=== PATIENT | female | born 1955 | race Caucasian/White ===

== ENCOUNTER 2023-07-23 06:23 | Day surgery (SDC) | payer MEDICARE, SELFPAY ==
[2023-07-23] VITALS (7 sets, daily range): BP systolic 99–140; BP diastolic 70–80; PULSE 55–71; RESP 16; TEMP 36.1–36.6; O2SAT 96–99; BMI 27.7
[2023-07-23] MEDS: Lactated Ringers 1,000 ML 15 ML IV (06:50)
--- NOTE | 2023-07-23 07:48 | PCM.HP.STD ---
HPI - General General Date of Admission: 07/23/23 Date of Service: 07/23/23 Chief Complaint: Screening colonoscopy HPI Narrative SUSAN HYDE, is a 68 F who presents today for screening colonoscopy. She had a colonoscopy approximately 12 years ago. She is not have any abdominal pain. She not have any nausea, vomiting or diarrhea. She has past medical history of mild hypertension and hyperlipidemia. Overall she is in very good health. [facility] Medical History (Updated 07/17/23 @ 16:00 by Jonathan Bermudez) Arthritis Atopic eczema Cardiology follow-up encounter Depression Disorder of thyroid Heartburn History of echocardiogram History of fracture of orbit History of skin cancer HTN (hypertension) Hx of breast cancer Hx of colonic polyp MVP (mitral valve prolapse) Home Medications calcium carbonate (Calcium 600) 600 mg PO DAILY 06/10/23 [History Last Taken 07/22/23] coenzyme Q10 30 mg capsule (Co Q-10) 30 mg PO DAILY 06/10/23 [History Last Taken 07/22/23] desvenlafaxine succinate 50 mg tablet,extended release 24 hr (Pristiq) 50 mg PO DAILY 06/10/23 [History Last Taken 07/23/23] dupilumab 300 mg/2 mL subcutaneous pen injector (Dupixent) 300 mg subcut Q3W 06/10/23 [History Last Taken Unknown] hydrochlorothiazide 12.5 mg capsule 12.5 mg PO DAILY 06/10/23 [History Last Taken 07/22/23] levothyroxine 50 mcg capsule 50 mcg PO DAILY 06/10/23 [History Last Taken 07/22/23] lisinopril 40 mg tablet 40 mg PO DAILY 06/10/23 [History Last Taken 07/22/23] metoprolol succinate 50 mg tablet,extended release 24 hr 50 mg PO DAILY 06/10/23 [History Last Taken 07/22/23] multivitamin 1 tab PO DAILY 06/10/23 [History Last Taken 07/22/23] omega-3 fatty acids-fish oil 360 mg-1,200 mg capsule (Fish Oil) 1 cap PO DAILY 06/10/23 [History Last Taken Unknown] simvastatin 20 mg tablet 20 mg PO QPM 06/10/23 [History Last Taken 07/22/23] turmeric root extract 500 mg capsule 500 mg PO DAILY 06/10/23 [History Last Taken Unknown] zolpidem 5 mg tablet 5 mg PO QHS insomnia 06/10/23 [History Last Taken 07/22/23] zolpidem 6.25 mg tablet,extended release,multiphase 6.25 mg PO QHS 06/10/23 [History Last Taken 07/22/23] Allergy/AdvReac Type Severity Reaction Status Date / Time ceftriaxone Allergy Low blood Verified 07/23/23 06:46 pressure Family History (Updated 06/10/23 @ 11:13 by Aerli Mcdermott) Mother COPD (chronic obstructive pulmonary disease) Myocardial infarction Father ALS (amyotrophic lateral sclerosis) Brother Multiple myeloma Grandmother Pancreatic cancer Surgical History History of arthroscopy of both knees History of lumpectomy of right breast Hx of section Hx of cholecystectomy Hx of colonoscopy Hx of vaginal hysterectomy Hx of wisdom tooth extraction Social History (Updated 06/10/23 @ 11:14 by Areli Mcdermott) household members: none current occupational status: employed 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 Smoking Status: Never smoker details: 1 glass wine per week substance use type: does not use ROS Review of Systems ROS Unobtainable: other Constitutional Constitutional: Denies fatigue, fever(s), poor appetite, weight gain or weight loss ENT HEENT: Denies mouth lesions Cardiovascular Cardiovascular: Denies abdominal bloating, abdominal edema or abdominal pain Respiratory/Chest Respiratory/Chest: Denies change in mental status, change in phlegm color, chest congestion or chest tightness Gastrointestinal Gastrointestinal: Denies belching, bloating, change in bowel habits, change in stool character, chewing difficulty, coffee ground emesis, constipation, cramping, diarrhea, dyspepsia, dysphagia, early satiety, excessive flatus, fecal incontinence, heartburn, hematemesis, hematochezia, hemorrhoids, loose stools, melena, nausea, odynophagia, rectal bleeding, tenesmus, vomiting or weight changes Genitourinary Genitourinary: Denies abdominal discomfort, burning urination or itching Musculoskeletal Musculoskeletal: Reports as per HPI; Denies muscle weakness or myalgias Integumentary Integumentary: Denies jaundice Neurologic Neurologic: Denies lack of coordination or weakness Psychiatric Psychiatric: Denies confusion, depression, memory loss, mood swings, paranoia or suicidal ideation Endocrine Endocrinology: Denies systems reviewed and no addt'l complaints, except as documented Hematologic/Lymphatic Hematologic/Lymphatic: Denies anemia, easy bleeding, easy bruising or lymphadenopathy Allergic/Immunologic Allergic/Immunologic: Denies systems reviewed and no addt'l complaints, except as documented Vital Signs Vital Signs Vital Signs: 07/23/23 06:47 07/23/23 06:47 Temperature 98 F Temperature Source Temporal Pulse Rate 55 L Respiratory Rate 16 Respiratory Pattern Normal Blood Pressure 140/72 H Blood Pressure Mean 94 Blood Pressure Source Monitor Blood Pressure Position Semi-Fowlers Blood Pressure Location Right Arm Pulse Ox 99 Oxygen Delivery Method Room Air Weight Weight: 156 lb 8.451 oz Body Mass Index (BMI) 27.7 Physical Exam Const alert General Appearance: cooperative Orientation / Consciousness: oriented to person HEENT hearing grossly normal bilaterally Head and Scalp: normal to inspection Face and Sinus: face symmetric Nose: external nose normal Mouth: oral and palatal mucosa normal Eyes conjunctivae normal General Eye: normal appearance of both eyes Neck full ROM General: normal visual inspection Lymph Lymphatic: no lymphadenopathy noted Chest inspection of chest normal and palpation of chest normal Chest: symmetrical chest wall rise Resp normal respiratory effort Effort and Inspection: able to speak in complete sentences Cardio regular rate GI non-distended Percussion: normal to percussion Rectal Exam: deferred Neuro Speech: speech normal Gait (Neuro): normal gait Assessment & Plan Assessment/Plan (1) Encounter for screening for malignant neoplasm of colon: PLAN: She was explained alternatives, risk, benefits include not withstanding bleeding, infection, sepsis, perforation, need for emergent surgery and . She will have an ASA of 2.
--- NOTE | 2023-07-23 08:13 | OP.CCLET_ITS ---
07/23/2023 Chon Reyes Re : Colonoscopy procedure for Annalisa Smith Dear Eric This procedure was performed on Sunday, July 23, 2023. My impressions and recommendations are as follows: Impressions : - Diverticulosis in the recto-sigmoid colon, in the sigmoid colon and in the descending colon. - The examination was otherwise normal on direct and retroflexion views. - No specimens collected. Recommendations : - Discharge patient to home. - Resume previous diet. - Continue present medications. - Repeat colonoscopy in 10 years for screening purposes. My findings are described in the full procedure note, which is enclosed. If I can be of further assistance, please feel free to contact me at . Sincerely, Hayden De La Torre, 07/23/2023 8:13:24 AM This report has been signed electronically.
--- NOTE | 2023-07-23 08:13 | OP.COLON_ITS ---
Patient Name: Annalisa Smith Procedure Date: 07/23/2023 7:49 AM Date of : 1955 Age: 68 Procedure: Colonoscopy Indications: Screening for colorectal malignant neoplasm Providers: Hayden De La Torre DO Referring MD: Chon Reyes Medicines: Monitored Anesthesia Care Patient Profile: This is a 68 year old female. Refer to note in patient chart for documentation of history and physical. Last Colonoscopy: more than 10 years ago. Complications: No immediate complications. Procedure: Pre-Anesthesia Assessment: - Prior to the procedure, a History and Physical was performed, and patient medications and allergies were reviewed. The risks and benefits of the procedure and the sedation options and risks were discussed with the patient. All questions were answered and informed consent was obtained. Patient identification and proposed procedure were verified by the physician in the pre-procedure area. Mental Status Examination: alert and oriented. Airway Examination: normal oropharyngeal airway and neck mobility. Respiratory Examination: clear to auscultation. CV Examination: normal. Prophylactic Antibiotics: The patient does not require prophylactic antibiotics. Prior Anticoagulants: The patient has taken no anticoagulant or antiplatelet agents. After reviewing the risks and benefits, the patient was deemed in satisfactory condition to undergo the procedure. The anesthesia plan was to use monitored anesthesia care (MAC). Immediately prior to administration of medications, the patient was re-assessed for adequacy to receive sedatives. The heart rate, respiratory rate, oxygen saturations, blood pressure, adequacy of pulmonary ventilation, and response to care were monitored throughout the procedure. The physical status of the patient was re-assessed after the procedure. After I obtained informed consent, the scope was passed under direct vision. Throughout the procedure, the patient's blood pressure, pulse, and oxygen saturations were monitored continuously. The Colonoscope was introduced through the anus and advanced to the cecum, identified by appendiceal orifice and ileocecal valve. The colonoscopy was performed without difficulty. The patient tolerated the procedure well. The quality of the bowel preparation was good. The ileocecal valve, appendiceal orifice, and rectum were photographed. Scope In: 7:58:55 AM Scope Withdrawal Time 0 hours 7 minutes 6 seconds Scope Out: 8:08:54 AM Total Procedure Duration Time 0 hours 9 minutes 59 seconds Findings: The perianal and digital rectal examinations were normal. Multiple small and large-mouthed diverticula were found in the recto-sigmoid colon, sigmoid colon and descending colon. The exam was otherwise without abnormality on direct and retroflexion views. Impression: - Diverticulosis in the recto-sigmoid colon, in the sigmoid colon and in the descending colon. - The examination was otherwise normal on direct and retroflexion views. - No specimens collected. Recommendation: - Discharge patient to home. - Resume previous diet. - Continue present medications. - Repeat colonoscopy in 10 years for screening purposes. Procedure Code(s): --- Professional --- G0121, Colorectal cancer screening; colonoscopy on individual not meeting criteria for high risk CPT copyright 2021 [employer]. All rights reserved. The codes documented in this report are preliminary and upon sexual health physician review may be revised to meet current compliance requirements. Hayden De La Torre DO 07/23/2023 8:13:24 AM This report has been signed electronically. Number of Addenda: 0 Note Initiated On: 07/23/2023 7:49 AM
== END 2023-07-23 09:00 | disposition home or self-care (01) ==
LOC: EN 06:24 → AC 06:25
PROVIDERS: PCP Family Medicine; Referring Provider Family Medicine; Visit Provider Internal Medicine Gastroenterology
PROC: 0DJD8ZZ Inspection of Lower Intestinal Tract, Via Natural or Artificial Opening Endoscopic (ICD-10-PCS; CPT 45378; principal; 2023-07-23 07:25)
DX: Z12.11 Encounter for screening for malignant neoplasm of colon (principal); K57.30 Diverticulosis of large intestine without perforation or abscess without bleeding; I10 Essential (primary) hypertension; E78.5 Hyperlipidemia, unspecified; E07.9 Disorder of thyroid, unspecified; Z86.010 Personal history of colon polyps; Z79.899 Other long term (current) drug therapy; Z90.49 Acquired absence of other specified parts of digestive tract
CPT/HCPCS: G0121; J7120; J2405